=== PATIENT | male | born 1965 | race African-American/Black ===

== ENCOUNTER 2019-04-03 02:30 | Emergency (ER) | payer MEDICAID ==
[~2019-04-03] VITALS: Ht 157.5 cm; Wt 63.0 kg
[2019-04-03 15:46] VITALS: BP 122/78
== END 2019-04-03 16:05 | disposition home or self-care (01) ==
LOC: EDBD 02:55 → ER 02:55
DX: R41.82 Altered mental status, unspecified (principal); F16.10 Hallucinogen abuse, uncomplicated; Z59.0 Homelessness
CPT/HCPCS: 99283

== ENCOUNTER 2019-05-12 00:53 | Emergency (ER) | payer MEDICAID ==
[~2019-05-12] VITALS: Ht 172.7 cm; Wt 68.0 kg
[2019-05-12 05:51] LABS: BASOPHILS % 1.1 % (0.0-2.0); EOSINOPHILS % 3.7 % (0.0-5.0); HEMATOCRIT. 43.8 % (42.0-52.0); HEMOGLOBIN. 14.8 g/dL (14.0-18.0); LYMPHOCYTES % 29.1 % (20.0-50.0); MEAN CORPUSCULAR VOLUME 100.2 fL (80.0-94.0); MEAN PLATELET VOLUME 11.5 fl (7.4-10.4); MONOCYTES % 8.8 % (2.0-8.0); NEUTROPHILS % 57.3 % (40.0-76.0); PLATELET 269 x1000/uL (130-400); RED BLOOD CELL COUNT 4.37 mill/uL (4.7-6.1); RED CELL DISTRIBUTION WIDTH 14.4 % (11.6-14.6)
[2019-05-12 05:53] LABS: CHLORIDE 105 mEq/L (98-107)
[2019-05-12 06:00] VITALS: BP 135/97
[2019-05-12 06:00] LABS: ETHANOL BLOOD < 10 mg/dL
== END 2019-05-12 07:22 | disposition home or self-care (01) ==
LOC: ER 00:53
DX: R56.9 Unspecified convulsions (principal); Z91.14 Patient's other noncompliance with medication regimen; I10 Essential (primary) hypertension; F16.10 Hallucinogen abuse, uncomplicated
CPT/HCPCS: 36415; 80320; 99284; G0480